=== PATIENT | male | born 1980 | race Caucasian/White ===

== ENCOUNTER 2023-10-11 05:19 | Emergency (ER) | payer SELFPAY ==
[2023-10-11] MEDS: Ketorolac 60 MG/2 ML SDV IM SCH (05:45)
[2023-10-11] MEDS ORDERED: Acetaminophen/oxyCODONE 325-5 MG Tab ONE (07:00)
== END 2023-10-11 07:16 | disposition home or self-care (01) ==
LOC: LB.ED 05:19
DX: S82.401A Unspecified fracture of shaft of right fibula, initial encounter for closed fracture (principal); S82.201A Unspecified fracture of shaft of right tibia, initial encounter for closed fracture; J44.9 Chronic obstructive pulmonary disease, unspecified; E66.9 Obesity, unspecified; F17.210 Nicotine dependence, cigarettes, uncomplicated; Z79.899 Other long term (current) drug therapy; Z68.43 Body mass index [BMI] 50.0-59.9, adult; W19.XXXA Unspecified fall, initial encounter
CPT/HCPCS: 29515; 73600-RT; 96372; 99283; 99284; A9270-GY; J1885